=== PATIENT | female | born 1930 | race Caucasian/White ===

== ENCOUNTER 2019-03-18 20:45 | Observation (INO) | payer MEDICARE, OTHER ==
--- NOTE | 2019-03-18 20:56 | EDM.PDOC ---
ED HPI GENERAL MEDICAL PROBLEM - General Chief Complaint: Respiratory Problem Stated Complaint: COUGH Time Seen by Provider: 03/18/19 20:55 Source of Information: Reports: Patient, Family (Daughter) - History of Present Illness INITIAL COMMENTS - FREE TEXT/NARRATIVE: Patient does have a baseline of dementia. She also has been coughing. We did give her a DuoNeb when she came by EMS and that did greatly improve her. Chest x -ray was negative. I did show the family the x-ray and the radiologist agreed that the x-ray was negative. Lactic acid however was elevated at 2.2 therefore I did keep her overnight for observation. I will be trending her lactic acid and do another one in 4 hours. I will also initiate antibiotic therapy. Blood cultures have been done. The patient is afebrile. ProBNP was negative. She was talking and reaching her baseline by the time that we took her upstairs for observation. I will continue trending the troponins. Most likely the patient will be going home tomorrow. Please use this dictation as my admitting note for observation. I will be reassessing the patient in the morning. Onset: Gradual Duration: Getting Worse Location: Reports: Generalized Improves with: Reports: Medication Context: Denies: Sick Contact - Related Data Allergies Allergy/AdvReac Type Severity Reaction Status Date / Time No Known Drug Allergies Allergy Other Verified 03/18/19 21:44 Home Meds: Home Meds Donepezil [Aricept] 10 mg PO DAILY 05/05/16 [History] Flaxseed Oil [Flax Oil] 1,000 mg PO DAILY 05/05/16 [History] Levothyroxine 75 mcg PO DAILY 05/05/16 [History] Loratadine 10 mg PO DAILY 05/05/16 [History] Multivitamins [Tab-A-Hollis] 1 tab PO DAILY 05/05/16 [History] Naproxen Sodium [Aleve] 220 mg PO Q12HR PRN 05/05/16 [History] Cholecalciferol (Vitamin D3) [Vitamin D3] 2,000 units PO DAILY #0 05/10/16 [Rx] ALPRAZolam [Xanax] 0.125 mg PO TID 03/19/19 [History] Acetaminophen 1,000 mg PO DAILY 03/19/19 [History] Bisacodyl 10 mg RC ONCALL PRN 03/19/19 [History] Bisacodyl [Dulcolax] 5 mg PO ONCALL 03/19/19 [History] Clobetasol [Temovate 0.05% Oint] 1 applic TOP ONCALL PRN 03/19/19 [History] Estradiol [Estrace Vaginal] 1 applic VAG BID 03/19/19 [History] Lactulose 15 ml PO BID PRN 03/19/19 [History] Melatonin 3 mg PO BEDTIME 03/19/19 [History] Omeprazole Magnesium [Prilosec Otc] 20 mg PO ACBREAKFAST 03/19/19 [History] Ondansetron [Zofran] 1 tab PO Q8HR PRN 03/19/19 [History] Potassium Chloride [Klor-Con M20] 20 meq PO DAILY 03/19/19 [History] Sennosides 2 tab PO BID 03/19/19 [History] Triamcinolone Acetonide [Triamcinolone Acetonide 0.1% Crm] 1 applic TOP ONCALL PRN 03/19/19 [History] guaiFENesin [Aidee-Tussin] 10 ml PO Q4HR PRN 03/19/19 [History] traMADol HCl [Tramadol HCl] 25 mg PO DAILY 03/19/19 [History] traMADol [Ultram] 50 mg PO DAILY PRN 03/19/19 [History] Past Medical History - Past Health History Medical/Surgical History: Denies Medical/Surgical History Gastrointestinal History: Reports: Chronic Constipation Other GRADES 1 THRU 6 [employer] History: lichen sclerosus et atrophicus. vulvar lesion Musculoskeletal History: Reports: Osteoporosis Other Musculoskeletal History: restless leg syndrome. DJD Neurological History: Reports: Other (See Below) Other Neuro History: dementia Psychiatric History: Reports: Anxiety, Dementia Endocrine/Metabolic History: Reports: Hypothyroidism Hematologic History: Reports: None Immunologic History: Reports: None Oncologic (Cancer) History: Reports: Breast, Other (See Below) Other Dermatologic History: granuloma annulare - Infectious Disease History Infectious Disease History: Reports: None - Past Surgical History HEENT Surgical History: Reports: Other (See Below) Female Surgical History: Reports: Section, Hysterectomy ED ROS GENERAL - Review of Systems Review Of Systems: ROS reveals no pertinent complaints other than HPI. ED EXAM, GENERAL - Physical Exam Exam: See Below Exam Limited By: No Limitations General Appearance: Alert, Mild Distress, Moderate Distress Eye Exam: Bilateral Eye: EOMI, Normal Fundi, Normal Inspection Respiratory/Chest: Respiratory Distress, Crackles, Rhonchi, Retractions, Other ( Bilaterally into the bases.). No: No Respiratory Distress, Lungs Clear, Normal Breath Sounds, No Accessory Muscle Use, Chest Non-Tender Cardiovascular: Normal Peripheral Pulses, Regular Rate, Rhythm GI/Abdominal: Normal Bowel Sounds, Soft, Non-Tender Back Exam: Normal Inspection Extremities: Normal Inspection Neurological: Alert, Other (Dementia is her baseline.) Psychiatric: Anxious Skin Exam: Warm, Dry Lymphatic: No Adenopathy Course - Vital Signs Last Recorded V/S: Last Vital Signs Temp 37.1 C 03/19/19 05:18 Pulse 81 03/19/19 05:18 Resp 20 03/19/19 05:18 BP 117/69 03/19/19 05:18 Pulse Ox 95 03/19/19 05:18 - Orders/Labs/Meds Orders: Active Orders 24 hr Category Date Time Status Patient Status [ADT] Routine ADT 03/18/19 22:55 Active Antiembolic Devices [RC] 08,20 Care 03/18/19 23:07 Active Oxygen Therapy [RC] .PRN Care 03/18/19 22:59 Active RT Aerosol Therapy [RC] .PRN Care 03/18/19 23:07 Active RT Aerosol Therapy [RC] ASDIRECTED Care 03/18/19 20:59 Active Up With Assistance [RC] 08,20 Care 03/18/19 22:58 Active VTE/DVT Education [RC] .PRN Care 03/18/19 22:59 Active Vital Signs [RC] 06,10,14,18,22,02 Care 03/18/19 22:59 Active Respiratory Care Assess and Treatment [CONS] Routine Cons 03/18/19 22:58 Active Regular Diet [DIET] Diet 03/19/19 Breakfast Active CXR [Chest 1V Frontal] [CR] Stat Exams 03/18/19 20:51 Taken CORTISOL [REF] Stat Lab 03/18/19 21:49 Received CULTURE BLOOD [BC] Stat Lab 03/18/19 21:49 Received CULTURE BLOOD [BC] Stat Lab 03/18/19 21:56 Results CULTURE URINE [RM] Stat Lab 03/18/19 20:52 Ordered Acetaminophen [Tylenol] Med 03/18/19 22:58 Active 650 mg PO Q4H PRN Albuterol/Ipratropium [DuoNeb 3.0-0.5 MG/3 ML] Med 03/18/19 22:58 Active 3 ml NEB Q4H PRN Ondansetron [Zofran] Med 03/18/19 22:58 Active 4 mg IV Q4H PRN Blood Culture x2 Reflex Set [OM.PC] Stat Oth 03/18/19 20:52 Ordered Sequential Compression Device [OM.PC] Per Unit Routine Oth 03/18/19 23:06 Ordered Resuscitation Status Routine Resus Stat 03/18/19 22:58 Ordered Medication Orders Acetaminophen (Tylenol) 650 mg PO Q4H PRN PRN Reason: Pain (Mild 1-3)/fever Albuterol/Ipratropium (Duoneb 3.0-0.5 Mg/3 Ml) 3 ml NEB Q4H PRN PRN Reason: dyspnea/wheezing Last Admin: 03/19/19 02:30 Dose: 3 ml Ceftriaxone Sodium (Rocephin) 1 gm IVPUSH DAILY [facility] Azithromycin 500 mg/ Sodium (Chloride) 250 mls @ 250 mls/hr IV DAILY [facility] Ondansetron HCl (Zofran) 4 mg IV Q4H PRN PRN Reason: Nausea/Vomiting Labs: Laboratory Tests 03/18/19 03/18/19 03/18/19 Range/Units 21:56 21:56 21:56 WBC 10.3 H (4.0-10.0) x10^3/uL RBC 4.63 (4.00-5.50) x10^6/uL Hgb 14.9 D (12.0-16.0) g/dL Hct 44.1 (33.0-47.0) % MCV 95.2 H D (78.0-93.0) fL MCH 32.2 H (26.0-32.0) pg MCHC 33.8 (32.0-36.0) g/dL RDW Coeff of Christopher 13.3 (10.0-15.0) % Plt Count 186 (130-400) x10^3/uL Neut % (Auto) 71.2 (50.0-80.0) % Lymph % (Auto) 19.7 L (25.0-50.0) % [place] % (Auto) 7.4 (2.0-11.0) % Eos % (Auto) 1.5 (0.0-4.0) % Baso % (Auto) 0.2 (0.2-1.2) % Sodium 143 D (136-145) mmol/L Potassium 4.3 (3.5-5.1) mmol/L Chloride 108 H D (98-107) mmol/L Carbon Dioxide 23 (21-32) mmol/L Anion Gap 16.3 (10-20) mmol/L BUN 26 H (7-18) mg/dL Creatinine 0.7 (0.55-1.02) mg/dL Est Cr Clr Drug Dosing 47.97 mL/min Estimated GFR (MDRD) > 60 Glucose 111 H (74-106) mg/dL Lactic Acid 2.2 H* (0.4-2.0) mmol/L Calcium 9.1 (8.5-10.1) mg/dL Corrected Calcium 10.06 (8.5-10.1) mg/dL Magnesium 1.8 (1.8-2.4) mg/dL Total Bilirubin 0.2 (0.2-1.0) mg/dL AST 19 (15-37) U/L ALT 18 (14-59) U/L Alkaline Phosphatase 74 (46-116) U/L C-Reactive Protein 2.3 H (<=0.9) mg/dL NT-Pro-B Natriuret Pep 347 (<=450) pg/mL Total Protein 7.7 (6.4-8.2) g/dL Albumin 2.8 L (3.4-5.0) g/dL Globulin 4.9 Albumin/Globulin Ratio 0.57 Meds: Medications Generic Name Dose Route Start Last Admin Trade Name Freq PRN Reason Stop Dose Admin Acetaminophen 650 mg 03/18/19 22:58 Tylenol PO Q4H PRN Pain (Mild 1-3)/fever Albuterol/Ipratropium 3 ml 03/18/19 22:58 03/19/19 02:30 Duoneb 3.0-0.5 Mg/3 Ml NEB 3 ml Q4H PRN Administration dyspnea/wheezing Ceftriaxone Sodium 1 gm 03/19/19 08:00 Rocephin IVPUSH DAILY [facility] Azithromycin 500 mg/ Sodium 250 mls @ 250 mls/hr 03/19/19 08:00 Chloride IV DAILY [facility] Ondansetron HCl 4 mg 03/18/19 22:58 Zofran IV Q4H PRN Nausea/Vomiting Discontinued Medications Generic Name Dose Route Start Last Admin Trade Name Freq PRN Reason Stop Dose Admin Albuterol/Ipratropium 3 ml 03/18/19 20:58 03/18/19 21:10 Duoneb 3.0-0.5 Mg/3 Ml NEB 03/18/19 20:59 3 ml ONETIME ONE Administration Departure - Departure Time of Disposition: 22:55 Disposition: Refer to Observation Condition: Fair Clinical Impression: Elevated lactic acid level Acute bronchiolitis Qualifiers: Bronchiolitis organism: unspecified organism Qualified Code(s): J21.9 - Acute bronchiolitis, unspecified - Discharge Information *PRESCRIPTION DRUG MONITORING PROGRAM REVIEWED*: No *COPY OF PRESCRIPTION DRUG MONITORING REPORT IN PATIENT KENISHA: No - My Orders Last 24 Hours: My Active Orders 03/18/19 20:51 CXR [Chest 1V Frontal] [CR] Stat 03/18/19 20:52 CULTURE URINE [RM] Stat Blood Culture x2 Reflex Set [OM.PC] Stat 03/18/19 20:59 RT Aerosol Therapy [RC] ASDIRECTED 03/18/19 21:49 CORTISOL [REF] Stat CULTURE BLOOD [BC] Stat 03/18/19 21:56 CULTURE BLOOD [BC] Stat 03/18/19 22:55 Patient Status [ADT] Routine 03/18/19 22:58 Up With Assistance [RC] 08,20 Respiratory Care Assess and Treatment [CONS] Routine Acetaminophen [Tylenol] 650 mg PO Q4H PRN Albuterol/Ipratropium [DuoNeb 3.0-0.5 MG/3 ML] 3 ml NEB Q4H PRN Ondansetron [Zofran] 4 mg IV Q4H PRN Resuscitation Status Routine 03/18/19 22:59 Oxygen Therapy [RC] .PRN VTE/DVT Education [RC] .PRN Vital Signs [RC] 06,10,14,18,22,02 03/18/19 23:06 Sequential Compression Device [OM.PC] Per Unit Routine 03/18/19 23:07 Antiembolic Devices [RC] 08,20 RT Aerosol Therapy [RC] .PRN 03/19/19 Breakfast Regular Diet [DIET] - Assessment/Plan Last 24 Hours: My Active Orders 03/18/19 20:51 CXR [Chest 1V Frontal] [CR] Stat 03/18/19 20:52 CULTURE URINE [RM] Stat Blood Culture x2 Reflex Set [OM.PC] Stat 03/18/19 20:59 RT Aerosol Therapy [RC] ASDIRECTED 03/18/19 21:49 CORTISOL [REF] Stat CULTURE BLOOD [BC] Stat 03/18/19 21:56 CULTURE BLOOD [BC] Stat 03/18/19 22:55 Patient Status [ADT] Routine 03/18/19 22:58 Up With Assistance [RC] 08,20 Respiratory Care Assess and Treatment [CONS] Routine Acetaminophen [Tylenol] 650 mg PO Q4H PRN Albuterol/Ipratropium [DuoNeb 3.0-0.5 MG/3 ML] 3 ml NEB Q4H PRN Ondansetron [Zofran] 4 mg IV Q4H PRN Resuscitation Status Routine 03/18/19 22:59 Oxygen Therapy [RC] .PRN VTE/DVT Education [RC] .PRN Vital Signs [RC] 06,10,14,18,22,02 03/18/19 23:06 Sequential Compression Device [OM.PC] Per Unit Routine 03/18/19 23:07 Antiembolic Devices [RC] 08,20 RT Aerosol Therapy [RC] .PRN 03/19/19 Breakfast Regular Diet [DIET]
[2019-03-18] MEDS ORDERED: Albuterol/Ipratropium 3.0-0.5 MG/3 ML Neb Soln NEB ONE (20:58)
[2019-03-18 22:43] LABS: CHLORIDE,CL 108 mmol/L (98-107); SODIUM,NA 143 mmol/L (136-145)
[2019-03-18 22:47] LABS: ANION GAP 16.3 mmol/L (10-20)
[2019-03-18] MEDS ORDERED: Albuterol/Ipratropium 3.0-0.5 MG/3 ML Neb Soln NEB PRN (22:58)
[2019-03-18] MEDS ORDERED: Ondansetron 4 MG/2 ML SDV IV PRN (22:58)
[2019-03-18] MEDS ORDERED: Acetaminophen 325 MG Tab PO PRN (22:58)
[2019-03-19] MEDS ORDERED: Azithromycin 500 MG in Sodium Chloride 0.9% 250 ML IV SCH (08:00)
[2019-03-19] MEDS ORDERED: cefTRIAXone 1 GM Vial IVPUSH SCH (08:00)
--- NOTE | 2019-03-19 09:19 | CR ---
[id number] RAD/RAD Chest PA or AP 1V EXAM: FRONTAL CHEST INDICATION: Shortness of breath. COMPARISON: October 02, 2012. DISCUSSION: Mild hyperinflation suggests possible underlying chronic obstructive pulmonary disease. No acute infiltrates are identified. Normal heart size. Moderate to large hiatus hernia. Left axillary clips. Chronic bilateral humerus fractures. IMPRESSION: 1. Underlying chronic obstructive pulmonary disease is suggested. No acute findings. Kei Rai MD 03/19/19 0917 Thank you for allowing us to participate in the care of your patient.
[2019-03-19] MEDS ORDERED: Albuterol/Ipratropium 3.0-0.5 MG/3 ML Neb Soln NEB ONE (09:34)
[2019-03-19 09:35] LABS: ANION GAP 12.3 mmol/L (10-20); CHLORIDE,CL 109 mmol/L (98-107); SODIUM,NA 143 mmol/L (136-145)
--- NOTE | 2019-03-19 09:40 | PCM.DCSUM1 ---
Discharge Summary - Hospital Course Free Text/Narrative:: X-ray is negative. She improved after a breathing treatment. No WBC. Trending LA. Will send her home with prednisone and doxycycline. Brief History: Patient was having difficulty with catching her breath. Lactic acid was elevated. I did keep her in for observation for trending Lactic acids and duonebs. Discussed case with primary. Diagnosis: Stroke: No - Discharge Data Discharge Date: 03/19/19 Discharge Disposition: DC/Tfer to [facility] Condition: Fair - Patient Summary/Data Consults: Consultations 03/18/19 22:58 Respiratory Care Assess and Treatment [CONS] Routine - Patient Instructions Diet: Regular Diet as Tolerated Activity: As Tolerated - Discharge Plan *PRESCRIPTION DRUG MONITORING PROGRAM REVIEWED*: No *COPY OF PRESCRIPTION DRUG MONITORING REPORT IN PATIENT KENISHA: No Prescriptions/Med Rec: Albuterol/Ipratropium [DuoNeb 3.0-0.5 MG/3 ML] 3 ml NEB BID #10 neb Doxycycline [Vibramycin] 100 mg PO BID #10 cap predniSONE [Prednisone] 20 mg PO DAILY #5 tablet Home Medications: Home Meds Donepezil [Aricept] 10 mg PO DAILY 05/05/16 [History] Flaxseed Oil [Flax Oil] 1,000 mg PO DAILY 05/05/16 [History] Levothyroxine 75 mcg PO DAILY 05/05/16 [History] Loratadine 10 mg PO DAILY 05/05/16 [History] Multivitamins [Tab-A-Hollis] 1 tab PO DAILY 05/05/16 [History] Naproxen Sodium [Aleve] 220 mg PO Q12HR PRN 05/05/16 [History] Cholecalciferol (Vitamin D3) [Vitamin D3] 2,000 units PO DAILY #0 05/10/16 [Rx] ALPRAZolam [Xanax] 0.125 mg PO TID 03/19/19 [History] Acetaminophen 1,000 mg PO DAILY 03/19/19 [History] Albuterol/Ipratropium [DuoNeb 3.0-0.5 MG/3 ML] 3 ml NEB BID #10 neb 03/19/19 [Rx ] Bisacodyl 10 mg RC ONCALL PRN 03/19/19 [History] Bisacodyl [Dulcolax] 5 mg PO ONCALL 03/19/19 [History] Clobetasol [Temovate 0.05% Oint] 1 applic TOP ONCALL PRN 03/19/19 [History] Doxycycline [Vibramycin] 100 mg PO BID #10 cap 03/19/19 [Rx] Estradiol [Estrace Vaginal] 1 applic VAG BID 03/19/19 [History] Lactulose 15 ml PO BID PRN 03/19/19 [History] Melatonin 3 mg PO BEDTIME 03/19/19 [History] Omeprazole Magnesium [Prilosec Otc] 20 mg PO ACBREAKFAST 03/19/19 [History] Ondansetron [Zofran] 1 tab PO Q8HR PRN 03/19/19 [History] Potassium Chloride [Klor-Con M20] 20 meq PO DAILY 03/19/19 [History] Sennosides 2 tab PO BID 03/19/19 [History] Triamcinolone Acetonide [Triamcinolone Acetonide 0.1% Crm] 1 applic TOP ONCALL PRN 03/19/19 [History] guaiFENesin [Aidee-Tussin] 10 ml PO Q4HR PRN 03/19/19 [History] predniSONE [Prednisone] 20 mg PO DAILY #5 tablet 03/19/19 [Rx] traMADol HCl [Tramadol HCl] 25 mg PO DAILY 03/19/19 [History] traMADol [Ultram] 50 mg PO DAILY PRN 03/19/19 [History] Forms: ED Department Discharge, ED Summary Discharge Referrals: Lynne Bergman DO [Primary Care Provider] - - Discharge Summary/Plan Comment DC Time >30 min.: No Discharge Summary/Plan Comment: The patient will be reassessed on Tuesday by her primary. - General Info Date of Service: 03/19/19 Functional Status: Reports: Pain Controlled - Review of Systems General: Reports: No Symptoms Pulmonary: Reports: Shortness of Breath (Slight) Cardiovascular: Reports: No Symptoms Gastrointestinal: Reports: No Symptoms Genitourinary: Reports: No Symptoms Musculoskeletal: Reports: No Symptoms - Patient Data Vitals - Most Recent: Last Vital Signs Temp 37.1 C 03/19/19 05:18 Pulse 81 03/19/19 05:18 Resp 20 03/19/19 05:18 BP 117/69 03/19/19 05:18 Pulse Ox 95 03/19/19 05:18 Weight - Most Recent: 56.699 kg I&O - Last 24 hours: Intake & Output 03/18/19 03/19/19 03/19/19 22:59 06:59 14:59 Intake Total 0 Balance 0 Lab Results - Last 24 hrs: Laboratory Results - last 24 hr 03/18/19 03/18/19 03/18/19 Range/Units 21:56 21:56 21:56 WBC 10.3 H (4.0-10.0) x10^3/uL RBC 4.63 (4.00-5.50) x10^6/uL Hgb 14.9 D (12.0-16.0) g/dL Hct 44.1 (33.0-47.0) % MCV 95.2 H D (78.0-93.0) fL MCH 32.2 H (26.0-32.0) pg MCHC 33.8 (32.0-36.0) g/dL RDW Coeff of Christopher 13.3 (10.0-15.0) % Plt Count 186 (130-400) x10^3/uL Neut % (Auto) 71.2 (50.0-80.0) % Lymph % (Auto) 19.7 L (25.0-50.0) % [place] % (Auto) 7.4 (2.0-11.0) % Eos % (Auto) 1.5 (0.0-4.0) % Baso % (Auto) 0.2 (0.2-1.2) % Sodium 143 D (136-145) mmol/L Potassium 4.3 (3.5-5.1) mmol/L Chloride 108 H D (98-107) mmol/L Carbon Dioxide 23 (21-32) mmol/L Anion Gap 16.3 (10-20) mmol/L BUN 26 H (7-18) mg/dL Creatinine 0.7 (0.55-1.02) mg/dL Est Cr Clr Drug Dosing 47.97 mL/min Estimated GFR (MDRD) > 60 Glucose 111 H (74-106) mg/dL Lactic Acid 2.2 H* (0.4-2.0) mmol/L Calcium 9.1 (8.5-10.1) mg/dL Corrected Calcium 10.06 (8.5-10.1) mg/dL Magnesium 1.8 (1.8-2.4) mg/dL Total Bilirubin 0.2 (0.2-1.0) mg/dL AST 19 (15-37) U/L ALT 18 (14-59) U/L Alkaline Phosphatase 74 (46-116) U/L C-Reactive Protein 2.3 H (<=0.9) mg/dL NT-Pro-B Natriuret Pep 347 (<=450) pg/mL Total Protein 7.7 (6.4-8.2) g/dL Albumin 2.8 L (3.4-5.0) g/dL Globulin 4.9 Albumin/Globulin Ratio 0.57 03/19/19 03/19/19 Range/Units 02:12 09:10 WBC 7.9 (4.0-10.0) x10^3/uL RBC 4.19 (4.00-5.50) x10^6/uL Hgb 13.6 (12.0-16.0) g/dL Hct 40.2 (33.0-47.0) % MCV 95.9 H (78.0-93.0) fL MCH 32.5 H (26.0-32.0) pg MCHC 33.8 (32.0-36.0) g/dL RDW Coeff of Christopher 13.4 (10.0-15.0) % Plt Count 168 (130-400) x10^3/uL Neut % (Auto) 69.9 (50.0-80.0) % Lymph % (Auto) 20.4 L (25.0-50.0) % [place] % (Auto) 7.7 (2.0-11.0) % Eos % (Auto) 1.6 (0.0-4.0) % Baso % (Auto) 0.4 (0.2-1.2) % Sodium (136-145) mmol/L Potassium (3.5-5.1) mmol/L Chloride (98-107) mmol/L Carbon Dioxide (21-32) mmol/L Anion Gap (10-20) mmol/L BUN (7-18) mg/dL Creatinine (0.55-1.02) mg/dL Est Cr Clr Drug Dosing mL/min Estimated GFR (MDRD) Glucose (74-106) mg/dL Lactic Acid 2.1 H* (0.4-2.0) mmol/L Calcium (8.5-10.1) mg/dL Corrected Calcium (8.5-10.1) mg/dL Magnesium (1.8-2.4) mg/dL Total Bilirubin (0.2-1.0) mg/dL AST (15-37) U/L ALT (14-59) U/L Alkaline Phosphatase (46-116) U/L C-Reactive Protein (<=0.9) mg/dL NT-Pro-B Natriuret Pep (<=450) pg/mL Total Protein (6.4-8.2) g/dL Albumin (3.4-5.0) g/dL Globulin Albumin/Globulin Ratio MATEO Results - Last 24 hrs: Microbiology 03/18/19 21:56 Anaerobic Blood Culture - Final Blood - Venous - Lab Draw Med Orders - Current: Current Medications Acetaminophen (Tylenol) 650 mg PO Q4H PRN PRN Reason: Pain (Mild 1-3)/fever Albuterol/Ipratropium (Duoneb 3.0-0.5 Mg/3 Ml) 3 ml NEB Q4H PRN PRN Reason: dyspnea/wheezing Last Admin: 03/19/19 02:30 Dose: 3 ml Ceftriaxone Sodium (Rocephin) 1 gm IVPUSH DAILY [facility] Last Admin: 03/19/19 08:27 Dose: 1 gm Azithromycin 500 mg/ Sodium (Chloride) 250 mls @ 250 mls/hr IV DAILY [facility] Last Admin: 03/19/19 08:26 Dose: 250 mls/hr Ondansetron HCl (Zofran) 4 mg IV Q4H PRN PRN Reason: Nausea/Vomiting Discontinued Medications Albuterol/Ipratropium (Duoneb 3.0-0.5 Mg/3 Ml) 3 ml NEB ONETIME ONE Stop: 03/18/19 20:59 Last Admin: 03/18/19 21:10 Dose: 3 ml Albuterol/Ipratropium (Duoneb 3.0-0.5 Mg/3 Ml) 3 ml NEB ONETIME ONE Stop: 03/19/19 09:35 - Exam Quality Assessment: Denies: Supplemental Oxygen General: Reports: Alert, Other (Baseline dementia established. ) HEENT: Reports: Pupils Equal, Pupils Reactive Neck: Reports: Supple, Trachea Midline Lungs: Reports: Rales (slight) Cardiovascular: Reports: Regular Rate, Regular Rhythm GI/Abdominal Exam: Normal Bowel Sounds, Soft Neurological: Reports: No New Focal Deficit Psy/Mental Status: Reports: Alert
[2019-03-19 11:21] VITALS: BP 124/86
== END 2019-03-19 11:15 ==
LOC: VM.ED 20:45 → VM.MS 23:03
PROVIDERS: ADMIT Physician Assistant; ATTEND Physician Assistant
DX: J21.9 Acute bronchiolitis, unspecified (principal); R74.0 Nonspecific elevation of levels of transaminase and lactic acid dehydrogenase [LDH]; E03.9 Hypothyroidism, unspecified; F03.90 Unspecified dementia, unspecified severity, without behavioral disturbance, psychotic disturbance, mood disturbance, and anxiety; M19.90 Unspecified osteoarthritis, unspecified site; K59.09 Other constipation; R45.1 Restlessness and agitation; Z79.899 Other long term (current) drug therapy
CPT/HCPCS: 36415; 71045; 80048; 80053; 82533; 83605; 83735; 83880; 85025; 86140; 87040; 93005; 94640; 96365; 96375; 99217; 99219; 99285-25; G0378; J0456; J0696; J7050; J7620-GY

== ENCOUNTER 2019-11-17 09:25 | Inpatient (IN) | payer MEDICARE, OTHER ==
[2019-11-17] MEDS ORDERED: Sodium Chloride 0.9% 1,000 ML IV ONE (09:36)
[2019-11-17] MEDS ORDERED: Sodium Chloride 0.9% 10 ML Syringe FLUSH PRN (09:36)
[2019-11-17] MEDS ORDERED: Clindamycin Phosphate in D5W 600 MG in Premix Bag 1 BAG IV SCH ×2 (09:45)
--- NOTE | 2019-11-17 10:05 | EDM.PDOC ---
ED HPI GENERAL MEDICAL PROBLEM - General Chief Complaint: Possible Sepsis Stated Complaint: shortness of breath Time Seen by Provider: 11/17/19 09:35 Source of Information: Reports: EMS, Care Home Records History Limitations: Reports: No Limitations - History of Present Illness INITIAL COMMENTS - FREE TEXT/NARRATIVE: Patient presents to the ER with complaints of diaphoresis, increased confusion from the halfway. Does have history of dementia. Had vomited last night, diarrhea stool this am. EMS reports wet lung moore. Oxygen sat was 90% on room air. Tachypneic. Afebrile. Patient denies pain except stating short of breath and bottom sore. No chest pain. No abdominal pain. Onset: Gradual Duration: Hour(s):, Getting Worse Location: Reports: Chest Severity: Moderate Associated Symptoms: Reports: Confusion, Diaphoresis, Nausea/Vomiting, Shortness of Breath, Weakness. Denies: Chest Pain, Cough, Fever/Chills Treatments PAID SEARCH SPECIALIST: Reports: See EMS Report - Related Data Allergies Allergy/AdvReac Type Severity Reaction Status Date / Time adhesive tape Allergy Rash Verified 11/17/19 10:46 Sulfa (Sulfonamide Allergy Cannot Verified 11/17/19 10:46 Antibiotics) Remember Home Meds: Home Meds Donepezil [Aricept] 10 mg PO DAILY 05/05/16 [History] Flaxseed Oil [Flax Oil] 1,000 mg PO DAILY 05/05/16 [History] Levothyroxine 75 mcg PO DAILY 05/05/16 [History] Loratadine 10 mg PO DAILY 05/05/16 [History] Multivitamins [Tab-A-Hollis] 1 tab PO DAILY 05/05/16 [History] Naproxen Sodium [Aleve] 220 mg PO Q12HR PRN 05/05/16 [History] Acetaminophen 1,000 mg PO DAILY 03/19/19 [History] Bisacodyl 10 mg RC Q96H PRN 03/19/19 [History] Bisacodyl [Dulcolax] 5 mg PO Q72H 03/19/19 [History] Clobetasol [Temovate 0.05% Oint] 1 applic TOP ONCALL PRN 03/19/19 [History] Lactulose 15 ml PO DAILY 03/19/19 [History] Melatonin 3 mg PO BEDTIME 03/19/19 [History] Omeprazole Magnesium [Prilosec Otc] 20 mg PO ACBREAKFAST 03/19/19 [History] Ondansetron [Zofran] 1 tab PO Q8HR PRN 03/19/19 [History] Sennosides 2 tab PO DAILY 03/19/19 [History] Triamcinolone Acetonide [Triamcinolone Acetonide 0.1% Crm] 1 applic TOP ONCALL PRN 03/19/19 [History] estradioL [Estrace Vaginal] 1 applic VAG ASDIRECTED 03/19/19 [History] traMADol HCl [Tramadol HCl] 25 mg PO DAILY 03/19/19 [History] ALPRAZolam [Xanax] 0.25 mg PO TID 11/17/19 [History] Albuterol/Ipratropium [DuoNeb 3.0-0.5 MG/3 ML] 3 ml NEB Q4H PRN 11/17/19 [ History] Cholecalciferol (Vitamin D3) [D3 Dots] 2,000 unit PO DAILY 11/17/19 [History] Hydrocortisone [Hydrocortisone 1% Crm] 1 dose TOP ASDIRECTED PRN 11/17/19 [ History] Hydrocortisone [Hydrocortisone 1% Crm] 1 dose TOP BID 11/17/19 [History] lamoTRIgine [Lamictal] 50 mg PO DAILY 11/17/19 [History] Past Medical History Cardiovascular History: Reports: High Cholesterol Gastrointestinal History: Reports: Chronic Constipation, GERD Other SEWER INSPECTOR History: lichen sclerosus et atrophicus. vulvar lesion Musculoskeletal History: Reports: Osteoarthritis, Osteoporosis Other Musculoskeletal History: restless leg syndrome. DJD Neurological History: Reports: Other (See Below) Other Neuro History: dementia Psychiatric History: Reports: Anxiety, Dementia, Depression Endocrine/Metabolic History: Reports: Hypothyroidism Hematologic History: Reports: Anemia Immunologic History: Reports: None Oncologic (Cancer) History: Reports: Breast, Other (See Below) Other Dermatologic History: granuloma annulare - Infectious Disease History Infectious Disease History: Reports: None - Past Surgical History HEENT Surgical History: Reports: Other (See Below) Female Surgical History: Reports: Section, Hysterectomy Social & Family History - Family History Family Medical History: Noncontributory - Tobacco Use Smoking Status *Q: Unknown Ever Smoked - Caffeine Use Caffeine Use: Reports: Coffee ED ROS GENERAL - Review of Systems Review Of Systems: See Below Constitutional: Reports: Malaise, Diaphoresis. Denies: Fever, Chills HEENT: Reports: No Symptoms Respiratory: Reports: Shortness of Breath Cardiovascular: Denies: Chest Pain Endocrine: Reports: Fatigue GI/Abdominal: Reports: Diarrhea, Nausea, Vomiting. Denies: Abdominal Pain : Reports: Other ("bottom sore") Musculoskeletal: Reports: No Symptoms Skin: Reports: Other (skin clammy on arrival) Neurological: Reports: Confusion, Weakness ED EXAM, SEPSIS - Physical Exam Exam: See Below Exam Limited By: No Limitations General Appearance: Alert, Moderate Distress Ears: Normal External Exam, Normal TMs Nose: Normal Inspection, Normal Mucosa, No Blood Throat/Mouth: Other (mucous membranes dry; posterior pharynx noted to have thick mucopurulent rhinorrhea) Head: Normocephalic Neck: Normal Inspection, Supple, Non-Tender Respiratory/Chest: Respiratory Distress, Rhonchi Cardiovascular: No Edema, Tachycardia GI/Abdominal Exam: Normal Bowel Sounds, Soft, Non-Tender Extremities: Normal Inspection, No Pedal Edema Neurological: Alert, Oriented (oriented to person) Skin: Other (clammy) Course - Orders/Labs/Meds Orders: Active Orders 24 hr Category Date Time Status EKG Documentation Completion [RC] STAT Care 11/17/19 09:36 Active CULTURE BLOOD [BC] Stat Lab 11/17/19 09:40 Received CULTURE BLOOD [BC] Stat Lab 11/17/19 09:49 Results Clindamycin Phosphate in D5W [Cleocin in D5W] 600 mg Med 11/17/19 09:45 Active Premix Bag 1 bag IV Q6H Ondansetron [Zofran] Med 11/17/19 10:16 Active 4 mg IVPUSH Q6H PRN Sodium Chloride 0.9% [Normal Saline] 1,000 ml Med 11/17/19 09:36 Active IV CONTINUOUS Sodium Chloride 0.9% [Saline Flush] Med 11/17/19 09:36 Active 10 ml FLUSH ASDIRECTED PRN Blood Culture x2 Reflex Set [OM.PC] Stat Oth 11/17/19 09:36 Ordered Saline Lock Insert [OM.PC] Stat Oth 11/17/19 09:36 Ordered Severe Sepsis Onset Time [OM.PC] Stat Oth 11/17/19 09:36 Ordered Medication Orders Clindamycin Phosphate 600 mg/ (Premix) 50 mls @ 150 mls/hr IV Q6H KAILASH Last Admin: 11/17/19 09:50 Dose: 150 mls/hr Sodium Chloride (Normal Saline) 1,000 mls @ 100 mls/hr IV CONTINUOUS ONE Stop: 11/17/19 19:35 Last Admin: 11/17/19 09:49 Dose: 100 mls/hr Ondansetron HCl (Zofran) 4 mg IVPUSH Q6H PRN PRN Reason: Nausea Last Admin: 11/17/19 10:31 Dose: 4 mg Sodium Chloride (Saline Flush) 10 ml FLUSH ASDIRECTED PRN PRN Reason: Keep Vein Open Labs: Laboratory Tests 11/17/19 11/17/19 11/17/19 Range/Units 09:40 09:40 09:40 WBC 6.1 (4.0-10.0) x10^3/uL RBC 5.63 H (4.00-5.50) x10^6/uL Hgb 17.3 H D (12.0-16.0) g/dL Hct 51.7 H (33.0-47.0) % MCV 91.8 D (78.0-93.0) fL MCH 30.7 (26.0-32.0) pg MCHC 33.5 (32.0-36.0) g/dL RDW Coeff of Christopher 14.1 (10.0-15.0) % Plt Count 214 (130-400) x10^3/uL Neut % (Auto) 90.3 H (50.0-80.0) % Lymph % (Auto) 2.3 L (25.0-50.0) % [place] % (Auto) 7.2 (2.0-11.0) % Eos % (Auto) 0.0 (0.0-4.0) % Baso % (Auto) 0.2 (0.2-1.2) % POC ABG pH (7.35-7.45) POC ABG pCO2 (35-45) mmHG POC ABG pO2 (80-105) mmHG POC ABG HCO3 (22-26) mmol/L POC ABG Total CO2 (23-27) mmol/L POC ABG O2 Sat (95-98) % POC ABG Base Excess (-2-3) mmol/L POC FiO2 Sodium 144 (136-145) mmol/L Potassium 3.9 (3.5-5.1) mmol/L Chloride 107 (98-107) mmol/L Carbon Dioxide 15 L D (21-32) mmol/L Anion Gap 25.9 H (10-20) mmol/L BUN 25 H (7-18) mg/dL Creatinine 1.3 H (0.55-1.02) mg/dL Est Cr Clr Drug Dosing TNP Estimated GFR (MDRD) 39 Glucose 199 H (74-106) mg/dL Lactic Acid 6.5 H* (0.4-2.0) mmol/L Calcium 9.0 (8.5-10.1) mg/dL Corrected Calcium 9.64 (8.5-10.1) mg/dL Total Bilirubin 0.5 (0.2-1.0) mg/dL AST 18 (15-37) U/L ALT 19 (14-59) U/L Alkaline Phosphatase 90 (46-116) U/L Troponin I < 0.017 (<=0.056) ng/mL C-Reactive Protein 13.6 H (<=0.9) mg/dL NT-Pro-B Natriuret Pep 2179 H (<=450) pg/mL Total Protein 8.3 H (6.4-8.2) g/dL Albumin 3.2 L (3.4-5.0) g/dL Globulin 5.1 Albumin/Globulin Ratio 0.63 POC Result Comm Urine Color (YELLOW) Urine Appearance (CLEAR) Urine pH (5.0-8.0) Ur Specific [place] Urine Protein (NEGATIVE) mg/dL Urine Glucose (UA) (NEGATIVE) mg/dL Urine Ketones (NEGATIVE) mg/dL Urine Occult Blood (NEGATIVE) Urine Nitrite (NEGATIVE) Urine Bilirubin (NEGATIVE) Urine Urobilinogen (0.2) EU/dL Ur Leukocyte Esterase (NEGATIVE) U Hyaline Cast (Auto) Urine RBC (NOT SEEN) /HPF Urine WBC (NOT SEEN) /HPF Ur Squamous Epith Cells (NEGATIVE) /HPF Amorphous Sediment Urine Bacteria (NEGATIVE) /HPF Urine Mucus (NEGATIVE) /LPF 11/17/19 11/17/19 Range/Units 10:05 10:20 WBC (4.0-10.0) x10^3/uL RBC (4.00-5.50) x10^6/uL Hgb (12.0-16.0) g/dL Hct (33.0-47.0) % MCV (78.0-93.0) fL MCH (26.0-32.0) pg MCHC (32.0-36.0) g/dL RDW Coeff of Christopher (10.0-15.0) % Plt Count (130-400) x10^3/uL Neut % (Auto) (50.0-80.0) % Lymph % (Auto) (25.0-50.0) % [place] % (Auto) (2.0-11.0) % Eos % (Auto) (0.0-4.0) % Baso % (Auto) (0.2-1.2) % POC ABG pH 7.255 L* (7.35-7.45) POC ABG pCO2 32 L (35-45) mmHG POC ABG pO2 92 (80-105) mmHG POC ABG HCO3 14 L (22-26) mmol/L POC ABG Total CO2 15 L (23-27) mmol/L POC ABG O2 Sat 96 (95-98) % POC ABG Base Excess -13 L (-2-3) mmol/L POC FiO2 0.28 Sodium (136-145) mmol/L Potassium (3.5-5.1) mmol/L Chloride (98-107) mmol/L Carbon Dioxide (21-32) mmol/L Anion Gap (10-20) mmol/L BUN (7-18) mg/dL Creatinine (0.55-1.02) mg/dL Est Cr Clr Drug Dosing Estimated GFR (MDRD) Glucose (74-106) mg/dL Lactic Acid (0.4-2.0) mmol/L Calcium (8.5-10.1) mg/dL Corrected Calcium (8.5-10.1) mg/dL Total Bilirubin (0.2-1.0) mg/dL AST (15-37) U/L ALT (14-59) U/L Alkaline Phosphatase (46-116) U/L Troponin I (<=0.056) ng/mL C-Reactive Protein (<=0.9) mg/dL NT-Pro-B Natriuret Pep (<=450) pg/mL Total Protein (6.4-8.2) g/dL Albumin (3.4-5.0) g/dL Globulin Albumin/Globulin Ratio POC Result Comm Called critical res Urine Color Dark yellow H (YELLOW) Urine Appearance Turbid H (CLEAR) Urine pH 5.0 (5.0-8.0) Ur Specific [place] >=1.030 Urine Protein Trace H (NEGATIVE) mg/dL Urine Glucose (UA) Negative (NEGATIVE) mg/dL Urine Ketones Negative (NEGATIVE) mg/dL Urine Occult Blood Moderate H (NEGATIVE) Urine Nitrite Negative (NEGATIVE) Urine Bilirubin Small H (NEGATIVE) Urine Urobilinogen 0.2 (0.2) EU/dL Ur Leukocyte Esterase Negative (NEGATIVE) U Hyaline Cast (Auto) Few Urine RBC 40-50 H (NOT SEEN) /HPF Urine WBC 0-5 (NOT SEEN) /HPF Ur Squamous Epith Cells Many H (NEGATIVE) /HPF Amorphous Sediment Many Urine Bacteria Few H (NEGATIVE) /HPF Urine Mucus Few H (NEGATIVE) /LPF Meds: Medications Generic Name Dose Route Start Last Admin Trade Name Freq PRN Reason Stop Dose Admin Clindamycin Phosphate 600 mg/ 50 mls @ 150 mls/hr 11/17/19 09:45 11/17/19 09: 50 Premix IV 150 mls/hr Q6H KAILASH Administration Sodium Chloride 1,000 mls @ 100 mls/hr 11/17/19 09:36 11/17/19 09:49 Normal Saline IV 11/17/19 19:35 100 mls/hr CONTINUOUS ONE Administration Ondansetron HCl 4 mg 11/17/19 10:16 11/17/19 10:31 Zofran IVPUSH 4 mg Q6H PRN Administration Nausea Sodium Chloride 10 ml 11/17/19 09:36 Saline Flush FLUSH ASDIRECTED PRN Keep Vein Open - Re-Assessments/Exams Free Text/Narrative Re-Assessment/Exam: 11/17/19 1050 Chest xray essentially clear at this time. Labs noted. WBC normal yet at 6. Lactic acid level 6.5. UA does show few bacteria, spec gravity over 1.030. ProBNP 2167. No history of CHF. Has had 2 loose stools thus far in the ER. Given IV Clindamycin 600 mg dose. STarted IV Normal saline. Discussed status with daughter 1110- Discussed status with [facility] family and consumer science professor. Accepted patient for admission. Departure - Departure Time of Disposition: 11:23 Disposition: Admitted As Inpatient 66 Condition: Fair Clinical Impression: Aspiration pneumonia due to gastric secretions, Elevated lactic acid level, Sepsis - Discharge Information *PRESCRIPTION DRUG MONITORING PROGRAM REVIEWED*: No *COPY OF PRESCRIPTION DRUG MONITORING REPORT IN PATIENT KENISHA: No Forms: ED Department Discharge Sepsis Event Note - Focused Exam Date Exam was Performed: 11/17/19 Time Exam was Performed: 11:18 - My Orders Last 24 Hours: My Active Orders 11/17/19 09:36 EKG Documentation Completion [RC] STAT Sodium Chloride 0.9% [Normal Saline] 1,000 ml IV CONTINUOUS Sodium Chloride 0.9% [Saline Flush] 10 ml FLUSH ASDIRECTED PRN Blood Culture x2 Reflex Set [OM.PC] Stat Saline Lock Insert [OM.PC] Stat Severe Sepsis Onset Time [OM.PC] Stat 11/17/19 09:40 CULTURE BLOOD [BC] Stat 11/17/19 09:45 Clindamycin Phosphate in D5W [Cleocin in D5W] 600 mg Premix Bag 1 bag IV Q6H 11/17/19 09:49 CULTURE BLOOD [BC] Stat 11/17/19 10:16 Ondansetron [Zofran] 4 mg IVPUSH Q6H PRN - Assessment/Plan Last 24 Hours: My Active Orders 11/17/19 09:36 EKG Documentation Completion [RC] STAT Sodium Chloride 0.9% [Normal Saline] 1,000 ml IV CONTINUOUS Sodium Chloride 0.9% [Saline Flush] 10 ml FLUSH ASDIRECTED PRN Blood Culture x2 Reflex Set [OM.PC] Stat Saline Lock Insert [OM.PC] Stat Severe Sepsis Onset Time [OM.PC] Stat 11/17/19 09:40 CULTURE BLOOD [BC] Stat 11/17/19 09:45 Clindamycin Phosphate in D5W [Cleocin in D5W] 600 mg Premix Bag 1 bag IV Q6H 11/17/19 09:49 CULTURE BLOOD [BC] Stat 11/17/19 10:16 Ondansetron [Zofran] 4 mg IVPUSH Q6H PRN
[2019-11-17] MEDS ORDERED: Ondansetron 4 MG/2 ML SDV IVPUSH PRN (10:16)
[2019-11-17 10:32] LABS: CHLORIDE,CL 107 mmol/L (98-107); SODIUM,NA 144 mmol/L (136-145)
[2019-11-17 10:33] LABS: ANION GAP 25.9 mmol/L (10-20)
--- NOTE | 2019-11-17 10:33 | CR ---
[id number] RAD/RAD Chest PA or AP 1V EXAM: FRONTAL CHEST INDICATION: SHORTNESS OF BREATH. COMPARISON: March 18, 2019. DISCUSSION: Moderate to large hiatus hernia. Left base atelectasis. No definite infiltrates. Borderline heart size without evidence of congestive heart failure. Chronic healed left proximal humerus fracture. Left axillary clips. IMPRESSION: 1. No acute findings. Kei Rai MD 11/17/19 1032 Thank you for allowing us to participate in the care of your patient.
[2019-11-17] MEDS ORDERED: Sodium Bicarbonate 8.4% 50 MEQ/50 ML Syringe IVPUSH ONE (12:14)
[2019-11-17] MEDS ORDERED: Bisacodyl 10 MG Supp RECTAL PRN (12:27)
[2019-11-17] MEDS ORDERED: Ondansetron 4 MG Tab.DIS PO PRN (12:27)
[2019-11-17] MEDS ORDERED: Clobetasol 0.05% Crm 30 GM Tube TOP PRN (12:27)
[2019-11-17] MEDS ORDERED: Triamcinolone Acetonide 0.1% Crm 15 GM Tube TOP PRN (12:27)
[2019-11-17] MEDS ORDERED: Hydrocortisone 1% Crm 30 GM Tube TOP PRN (12:27)
[2019-11-17] MEDS ORDERED: Piperacillin/Tazobactam 4.5 GM in Sodium Chloride 0.9% 100 ML IV ONE (13:30)
[2019-11-17] MEDS: Piperacillin/Tazobactam 4.5 GM in Sodium Chloride 0.9% 100 ML IV ONE ×3 (13:30→13:38)
[2019-11-17] MEDS: Sodium Chloride 0.9% 1,000 ML IV SCH (13:40)
[2019-11-17] MEDS: Albuterol/Ipratropium 3.0-0.5 MG/3 ML Neb Soln NEB PRN ×2 (13:42→20:14)
[2019-11-17] MEDS: Oseltamivir 75 MG Cap PO SCH ×2 (16:26→21:43)
[2019-11-17] MEDS: Bisacodyl 5 MG Tab PO SCH (16:26)
--- NOTE | 2019-11-17 17:27 | HP ---
CHIEF COMPLAINT: Shortness of breath. HISTORY OF PRESENT ILLNESS: The patient was brought to the emergency room at [facility] this morning for diaphoresis and increased confusion. It is thought that the patient may have aspirated last evening while at the [place] [facility]. The patient does have significant dementia. The patient also had vomiting last evening and diarrhea this morning. According to the EMS report, the patient had very wet lung moore. The patient's oxygen saturations were in the low 90s on room air. The patient had been very tachypneic. PAST MEDICAL HISTORY: 1. Malignant neoplasm of the left breast. 2. Hypercholesteremia. 3. Hyperthyroidism. 4. History of hyponatremia. 5. Generalized anxiety disorder. 6. Dementia with behavioral disturbance. 7. Impulse control. 8. Anemia. 9. Restless legs syndrome. PAST SURGICAL HISTORY: None. FAMILY HISTORY: Noncontributory. SOCIAL HISTORY: The patient does not smoke cigarettes. The patient is a current resident at the [facility] in [place], [place]. LABORATORY STUDIES: 1. CBC: White blood cell count 6.1, hemoglobin 17.3, hematocrit 51.7, platelet count 214,000. 2. BMP: Sodium 144, potassium 3.9, chloride 107, CO2 of 15, and anion gap is 25.9, BUN is 25, creatinine 1.3. Glucose is 99, calcium is 9.0, AST is 18, ALT is 19, alkaline phosphatase is 90, protein is 8.3. 3. Lactic acid 6.5. 4. CRP is 13.6. 5. BNP is 2179. 6. Troponin is less than 0.017. 7. UA, specific gravity greater than 1.030, urine pH is 5.0, negative glucose, negative ketones, negative leukocyte esterase, negative wbc's. MEDICATIONS: 1. Tramadol 25 mg 1 tablets p.o. daily as needed. 2. Lactulose 15 mL daily as needed. 3. Senna 8.6 mg tablet 2 tablets onetime a day. 4. Dulcolax 5 mg 1 tablet p.o. every 3 days as needed. 5. Dulcolax 10 mg suppository every fourth day. 6. Omeprazole 20 mg 1 tablet p.o. daily. 7. Melatonin 3 mg 1 tablet p.o. daily at bedtime. 8. DuoNebs via nebulizer twice daily. 9. Clobetasol daily as needed for itching. 10.Triamcinolone daily as needed for rash. 11.Alprazolam 0.5 mg 3 times a day. 12.Acetaminophen 500 mg 2 tablets daily onetime a day. 13.Cholecalciferol 2000 International Units 1 capsule daily. 14.Aricept 10 mg 1 tablet p.o. daily. 15.Estrace 1 g vaginally 2 times a week. 16.Depakote 500 mg 1 tablet p.o. daily at bedtime. 17.Zofran 4 mg 1 tablet every 8 hours as needed. 18.Levothyroxine 75 mcg 1 tablet p.o. daily. 19.Claritin 10 mg 1 tablet p.o. daily. 20.Multivitamin 1 tablet p.o. daily. 21.Calcium 600 mg 1 tablet p.o. daily. 22.Flaxseed oil 1000 mg 1 tablet daily. 23.Naproxen 1 tablet p.o. twice daily as needed. ALLERGIES: 1. Adhesive tape. 2. Sulfa. REVIEW OF SYSTEMS: Please note, patient is somewhat lethargic but able to answer questions. General: The patient offers no specific complaints. The patient currently denies any pain. Respiratory: The patient feels short of breath. She has a cough. Cardiovascular: Negative. Abdomen: Negative. Skin: Negative. Neurological: Negative. PHYSICAL EXAMINATION: General Presentation: The patient is somewhat lethargic but alert when stimulated. Patient does not appear to be in any acute distress. Patient is cooperative. Respiratory: The patient has significant wet rhonchi in bilateral upper lobes, right greater than left. The bases are clear. The patient is tachypneic. Cardiovascular: Regular rate and rhythm. No murmur. Abdomen. Soft. Nontender. Bowel sounds are hypoactive x4. Skin: The patient's buttock is red, but there are no open areas. Otherwise, skin is okay. Neurological: The patient is lethargic, but able to answer questions with one- word responses. ASSESSMENT: 1. Aspiration pneumonia. 2. Dehydration. 3. Influenza B. 4. Diarrhea. 5. Dementia with behavioral disturbance. 6. Impulse control disorder. 7. Hypothyroidism. 8. Pure hypercholesteremia. 9. Restless legs syndrome. PLAN: The patient will be admitted to the acute care floor at [facility]. The patient will be started on Zosyn per protocol for aspiration pneumonia. Patient will also be started on Tamiflu for her influenza given her comorbid conditions and advanced age. The patient will be hydrated with normal saline. We will continue the same diet from the [place] [facility]. Aspiration precautions. The patient is a code 2 per patient and family wishes. I anticipate admission for at least the next 3 to 4 days. TB: 11/17/2019 14:58:21 MODL: 11/17/2019 17:23:12 /[id number]
[2019-11-17] MEDS: Piperacillin/Tazobactam 3.375 GM in Sodium Chloride 0.9% 100 ML IV SCH (20:05)
[2019-11-17] MEDS: Melatonin 3 MG Tab PO SCH (20:13)
[2019-11-17] MEDS ORDERED: Oseltamivir 30 MG Cap PO ONE (21:00)
[2019-11-18] MEDS: Sodium Chloride 0.9% 1,000 ML IV SCH (03:00)
[2019-11-18] MEDS: Piperacillin/Tazobactam 3.375 GM in Sodium Chloride 0.9% 100 ML IV SCH ×3 (04:25→19:40)
[2019-11-18] MEDS: Omeprazole 20 MG Cap.CR PO SCH (06:14)
[2019-11-18] MEDS ORDERED: Lactulose Soln 10 GM/15 ML 15 ML UD Cup PO SCH (08:00)
[2019-11-18 08:19] LABS: ANION GAP 16.2 mmol/L (10-20)
[2019-11-18] MEDS ORDERED: Potassium Chloride Riders 20 MEQ in Premix Bag 1 BAG IV ONE (11:04)
[2019-11-18] MEDS: Acetaminophen 500 MG Tab PO SCH (11:10)
[2019-11-18] MEDS: Loratadine 10 MG Tab PO SCH (11:10)
[2019-11-18] MEDS: Oseltamivir 30 MG Cap PO SCH ×2 (11:10→19:44)
[2019-11-18] MEDS: Donepezil 10 MG Tab PO SCH (11:10)
[2019-11-18] MEDS: lamoTRIgine 100 MG Tab PO SCH (11:11)
[2019-11-18] MEDS: traMADol 50 MG Tab PO SCH (11:12)
[2019-11-18] MEDS: Levothyroxine 75 MCG Tab PO SCH (11:14)
[2019-11-18] MEDS: Sennosides 8.6 MG Tab PO SCH (11:14)
[2019-11-18] MEDS: Dextrose 5% in Water 1,000 ML IV SCH (11:15)
[2019-11-18] MEDS: Melatonin 3 MG Tab PO SCH (19:43)
[2019-11-19] MEDS: Piperacillin/Tazobactam 3.375 GM in Sodium Chloride 0.9% 100 ML IV SCH ×3 (04:23→19:48)
[2019-11-19] MEDS: Omeprazole 20 MG Cap.CR PO SCH (06:43)
[2019-11-19 07:49] LABS: ANION GAP 11.2 mmol/L (10-20); CHLORIDE,CL 112 mmol/L (98-107); SODIUM,NA 146 mmol/L (136-145)
--- NOTE | 2019-11-19 10:38 | PN ---
Progress Note for MADONNA SANCHEZ Date: 11/18/2019 Room #: VM.216 CHIEF COMPLAINT: Shortness of breath. SUBJECTIVE: The patient was admitted to the emergency room at [facility] yesterday for diaphoresis and increased confusion. It was thought that the patient may have aspirated last evening while at the half-way. The patient does have significant dementia. The patient also had vomiting last evening and diarrhea yesterday morning. The patient initially upon admission had a very wet and congested lung sounds, right greater than left. The patient's oxygen saturations were very low and the patient was very tachypneic. The patient offers no specific complaints today. She states she is not having any pain. She feels that her breathing is better. She does feel very fatigued. The patient states she has a cough that is congested. The patient denies any chest pain or palpitations. The patient denies any abdominal pain. She has not had any vomiting or diarrhea since admission. PHYSICAL EXAMINATION: General Presentation: The patient is alert. The patient is pleasantly confused. The patient does not appear to be in any acute distress. Respiratory: Lungs have greatly improved from yesterday. Lung sounds are much more clear without any rhonchi or wheezing. The patient is still slightly tachypneic at 22. Cardiovascular: Regular rate and rhythm, no murmur. Abdomen: Soft. Bowel sounds are hypoactive x4, abdomen is nontender. Skin: Buttock is slightly reddened, however, no open areas. Neurologic: The patient is confused secondary to dementia. The patient is alert. Patient is cooperative. LABORATORY STUDIES: 1. CBC, white blood cell count 8.1, hemoglobin 14.5, hematocrit 43.6, platelets are 170,000, neutrophils 47%, band neutrophils 45%. 2. BMP: Sodium is 148, potassium 3.2, chloride is 112, CO2 is 23, anion gap is 16.2, BUN is 29, creatinine 0.9, GFR is 59, glucose is 136, calcium is 8.3. ASSESSMENT: 1. Aspiration pneumonia. 2. Influenza B. 3. Dehydration. 4. Diarrhea. 5. Dementia with behavioral disturbances. 6. Impulse control disorder. 7. Hypothyroidism. 8. Pure hypercholesterolemia. 9. Restless legs syndrome. PLAN: This is hospital day #2 for an 89-year-old female from the local half-way, who is diagnosed with aspiration pneumonia, dehydration, and influenza B. The patient's lung sounds are greatly improved. We will continue the patient on the Zosyn. We will also continue on p.r.n. nebulizers. We will switch the patient over to D5 given her increase in sodium level. I will give the patient 20 mEq of IV potassium today. We will check laboratory work in the morning. The patient is a code 2. We will continue the same diet from the half-way. Continue with acute cares for now. I do anticipate admission for another 1 to 2 days. TB: 11/18/2019 11:16:38 MODL: 11/18/2019 15:07:58 /[id number]
[2019-11-19] MEDS: traMADol 50 MG Tab PO SCH (10:41)
[2019-11-19] MEDS: Acetaminophen 500 MG Tab PO SCH (10:43)
[2019-11-19] MEDS: Donepezil 10 MG Tab PO SCH (10:43)
[2019-11-19] MEDS: Levothyroxine 75 MCG Tab PO SCH (10:44)
[2019-11-19] MEDS: lamoTRIgine 100 MG Tab PO SCH (10:44)
[2019-11-19] MEDS: Loratadine 10 MG Tab PO SCH (10:44)
[2019-11-19] MEDS: Sennosides 8.6 MG Tab PO SCH (10:45)
[2019-11-19] MEDS: Oseltamivir 30 MG Cap PO SCH ×2 (10:45→19:49)
[2019-11-19] MEDS: Dextrose 5% in Water 1,000 ML IV SCH (12:59)
--- NOTE | 2019-11-19 18:06 | PCM.PN ---
- General Info Date of Service: 11/19/19 Admission Dx/Problem (Free Text): History: She was admitted to with sudden sweating,, increased confusion, although she has significant dementia otherwise, and apparent respiratory distress. In the ER she was acidotic, in spite of tachypnea and probably partially compensated metabolic acidosis. Her lactic acid was quite elevated, WBC normal. Her BNP was quite elevated. She also tested positive for influenza type B. She had not been observed to choke during feeding but it was assumed that she might have aspiration pneumonia. Admitted and is getting Zosyn IV. She seems to feel better yesterday and today than on admission. Lactic acid decreased yesterday from 6.5 down to 3.0, other lab remains normal. Her CXR was read as normal. Exam: -Heart sounds regular, has a holosystolic murmur at the L chest consistent with mitral regurgitation -No respiratory distress now but she does have coarse rales and rhonchi throughout -Oximetry OK -She is mildly agitated and confused Impression: -Influenza type B -Acute respiratory distress at first, but now aspiration pneumonia seems unlikely -Murmur of mitral insufficiency Plan: -Continue Zosyn for a few days -Continue Tamiflu -Back to [facility] when she seems to be stabilizing. - Patient Data Vitals - Most Recent: Last Vital Signs Temp 36.1 C 11/19/19 17:28 Pulse 74 11/19/19 17:28 Resp 19 11/19/19 04:37 BP 116/56 L 11/19/19 17:28 Pulse Ox 95 11/19/19 17:28 Weight - Most Recent: 62.006 kg I&O - Last 24 Hours: Intake & Output 11/19/19 11/19/19 11/19/19 06:59 14:59 22:59 Intake Total 574 300 Balance 574 300 Lab Results Last 24 Hours: Laboratory Results - last 24 hr 11/19/19 11/19/19 11/19/19 Range/Units 06:52 06:52 06:52 WBC 6.9 (4.0-10.0) x10^3/uL RBC 4.01 (4.00-5.50) x10^6/uL Hgb 12.4 D (12.0-16.0) g/dL Hct 37.5 (33.0-47.0) % MCV 93.5 H (78.0-93.0) fL MCH 30.9 (26.0-32.0) pg MCHC 33.1 (32.0-36.0) g/dL RDW Coeff of Christopher 13.9 (10.0-15.0) % Plt Count 116 L (130-400) x10^3/uL Neut % (Auto) 80.5 H (50.0-80.0) % Lymph % (Auto) 12.4 L (25.0-50.0) % Long % (Auto) 6.7 (2.0-11.0) % Eos % (Auto) 0.3 (0.0-4.0) % Baso % (Auto) 0.1 L (0.2-1.2) % Sodium 146 H (136-145) mmol/L Potassium 3.2 L (3.5-5.1) mmol/L Chloride 112 H (98-107) mmol/L Carbon Dioxide 26 (21-32) mmol/L Anion Gap 11.2 (10-20) mmol/L BUN 25 H (7-18) mg/dL Creatinine 0.6 (0.55-1.02) mg/dL Est Cr Clr Drug Dosing 52.58 mL/min Estimated GFR (MDRD) > 60 Glucose 86 (74-106) mg/dL Calcium 8.2 L (8.5-10.1) mg/dL Magnesium 1.9 (1.8-2.4) mg/dL Michele Results Last 24 Hours: Microbiology 11/17/19 09:49 Aerobic Blood Culture - Preliminary Blood - Venous - Lab Draw NO GROWTH AFTER 2 DAYS Anaerobic Blood Culture - Final 11/17/19 09:40 Aerobic Blood Culture - Preliminary Blood - Venous NO GROWTH AFTER 2 DAYS Anaerobic Blood Culture - Preliminary NO GROWTH AFTER 2 DAYS Med Orders - Current: Current Medications Acetaminophen (Tylenol Extra Strength) 1,000 mg PO DAILY [facility] Last Admin: 11/19/19 10:43 Dose: 1,000 mg Albuterol/Ipratropium (Duoneb 3.0-0.5 Mg/3 Ml) 3 ml NEB Q4H PRN PRN Reason: Shortness Of Breath/wheezing Last Admin: 11/17/19 20:14 Dose: 3 ml Bisacodyl (Dulcolax) 10 mg RECTAL Q96H PRN PRN Reason: Constipation Bisacodyl (Dulcolax) 5 mg PO Q72H [facility] Last Admin: 11/17/19 16:26 Dose: Not Given Clobetasol Propionate (Clobetasol 0.05%) 0 gm TOP ASDIRECTED PRN PRN Reason: Itching Donepezil HCl (Aricept) 10 mg PO DAILY [facility] Last Admin: 11/19/19 10:43 Dose: 10 mg Hydrocortisone (Hydrocortisone 1% Crm) 0 gm TOP BID PRN PRN Reason: Itching Piperacillin Sod/Tazobactam (Sod 3.375 gm/ Sodium Chloride) 100 mls @ 25 mls/ hr IV Q8H [facility] Last Admin: 11/19/19 14:01 Dose: 25 mls/hr Dextrose/Water (Dextrose 5% In Water) 1,000 mls @ 75 mls/hr IV ASDIRECTED [facility] Last Admin: 11/19/19 12:59 Dose: 75 mls/hr Lamotrigine (Lamotrigine) 50 mg PO DAILY [facility] Last Admin: 11/19/19 10:44 Dose: 50 mg Levothyroxine Sodium (Levothyroxine) 75 mcg PO DAILY [facility] Last Admin: 11/19/19 10:44 Dose: 75 mcg Loratadine (Claritin) 10 mg PO DAILY [facility] Last Admin: 11/19/19 10:44 Dose: 10 mg Melatonin (Melatonin) 3 mg PO BEDTIME [facility] Last Admin: 11/18/19 19:43 Dose: 3 mg Omeprazole (Omeprazole) 20 mg PO ACBREAKFAST [facility] Last Admin: 11/19/19 06:43 Dose: 20 mg Ondansetron HCl (Zofran) 4 mg IVPUSH Q6H PRN PRN Reason: Nausea Last Admin: 11/17/19 10:31 Dose: 4 mg Ondansetron HCl (Zofran Odt) 4 mg PO Q8HR PRN PRN Reason: Nausea Last Admin: 11/18/19 19:44 Dose: 4 mg Oseltamivir Phosphate (Tamiflu) 30 mg PO BID [facility] Last Admin: 11/19/19 10:45 Dose: 30 mg Senna (Senna) 17.2 mg PO DAILY [facility] Last Admin: 11/19/19 10:45 Dose: Not Given Sodium Chloride (Saline Flush) 10 ml FLUSH ASDIRECTED PRN PRN Reason: Keep Vein Open Tramadol HCl (Ultram) 25 mg PO DAILY [facility] Last Admin: 11/19/19 10:41 Dose: 25 mg Triamcinolone Acetonide (Triamcinolone Acetonide 0.1% Crm) 0 gm TOP ONCALL PRN PRN Reason: Itching Discontinued Medications Clindamycin Phosphate 600 mg/ (Premix) 50 mls @ 150 mls/hr IV Q6H [facility] Last Admin: 11/17/19 09:50 Dose: 150 mls/hr Sodium Chloride (Normal Saline) 1,000 mls @ 100 mls/hr IV CONTINUOUS ONE Stop: 11/17/19 19:35 Last Admin: 11/17/19 09:49 Dose: 100 mls/hr Piperacillin Sod/Tazobactam (Sod 4.5 gm/ Sodium Chloride) 100 mls @ 200 mls/hr IV ONETIME ONE Stop: 11/17/19 12:59 Last Admin: 11/17/19 13:38 Dose: Not Given Sodium Chloride (Normal Saline) 1,000 mls @ 75 mls/hr IV ASDIRECTED [facility] Last Admin: 11/18/19 03:00 Dose: 75 mls/hr Piperacillin Sod/Tazobactam (Sod 4.5 gm/ Sodium Chloride) 100 mls @ 200 mls/hr IV ONETIME ONE Stop: 11/17/19 13:59 Last Admin: 11/17/19 13:37 Dose: 200 mls/hr Potassium Chloride 20 meq/ (Premix) 50 mls @ 25 mls/hr IV ONETIME ONE Stop: 11/18/19 13:03 Last Admin: 11/18/19 11:26 Dose: 25 mls/hr Lactulose (Chronulac) 10 gm PO DAILY [facility] Last Admin: 11/18/19 11:14 Dose: Not Given Oseltamivir Phosphate (Tamiflu) 75 mg PO BID [facility] Last Admin: 11/17/19 21:43 Dose: Not Given Oseltamivir Phosphate (Tamiflu) 30 mg PO ONETIME ONE Stop: 11/17/19 21:01 Last Admin: 11/17/19 21:42 Dose: 30 mg Sodium Bicarbonate (Sodium Bicarbonate 8.4%) 50 meq IVPUSH ONETIME ONE Stop: 11/17/19 12:15 Last Admin: 11/17/19 13:42 Dose: 50 meq Sepsis Event Note - Evaluation Sepsis Screening Result: No Definite Risk - Focused Exam Vital Signs: Vital Signs Temp Pulse BP Pulse Ox Pulse Ox 11/19/19 17:28 36.1 C 74 116/56 L 95 11/19/19 15:33 36.6 C 75 111/49 L 96 11/19/19 08:00 97 Date Exam was Performed: 11/19/19 Time Exam was Performed: 18:04 - Problem List Review Problem List Initiated/Reviewed/Updated: Yes
[2019-11-19] MEDS ORDERED: Hypromellose 0.3% Ophth Soln 15 ML Bottle EYEBOTH PRN (19:02)
--- NOTE | 2019-11-19 19:26 | CR ---
[id number] RAD/RAD Chest PA or AP 1V EXAM: RAD Chest PA or AP 1V INDICATION: INFLUENZA. COMPARISON: November 17, 2019. DISCUSSION: Cardiomediastinal silhouette is stable in size and contour. Moderate to large hiatal hernia. Right basilar pulmonary infiltrate. Pulmonary hyperinflation. Vascular crowding. No pneumothorax. Small left pleural effusion. IMPRESSION: Right basilar pulmonary infiltrate. Sanket Martin DO 11/19/19 1925 Thank you for allowing us to participate in the care of your patient.
[2019-11-19] MEDS: Melatonin 3 MG Tab PO SCH (19:48)
[2019-11-19] MEDS ORDERED: Potassium Chloride 10 MEQ Tab.ER PO ONE (19:54)
[2019-11-20] MEDS: Piperacillin/Tazobactam 3.375 GM in Sodium Chloride 0.9% 100 ML IV SCH ×3 (04:06→19:57)
[2019-11-20] MEDS: Omeprazole 20 MG Cap.CR PO SCH (06:05)
[2019-11-20 07:03] LABS: CHLORIDE,CL 110 mmol/L (98-107); SODIUM,NA 144 mmol/L (136-145)
[2019-11-20 07:05] LABS: ANION GAP 11.1 mmol/L (10-20)
[2019-11-20] MEDS: Acetaminophen 500 MG Tab PO SCH (07:58)
[2019-11-20] MEDS: Levothyroxine 75 MCG Tab PO SCH (07:58)
[2019-11-20] MEDS: Loratadine 10 MG Tab PO SCH (07:58)
[2019-11-20] MEDS: Donepezil 10 MG Tab PO SCH (07:58)
[2019-11-20] MEDS: traMADol 50 MG Tab PO SCH (07:59)
[2019-11-20] MEDS: Sennosides 8.6 MG Tab PO SCH (07:59)
[2019-11-20] MEDS: lamoTRIgine 100 MG Tab PO SCH (07:59)
[2019-11-20] MEDS: Oseltamivir 30 MG Cap PO SCH ×2 (08:00→19:57)
[2019-11-20] MEDS ORDERED: Albuterol/Ipratropium 3.0-0.5 MG/3 ML Neb Soln NEB ONE (08:39)
[2019-11-20] MEDS: Potassium Chloride 10 MEQ Tab.ER PO SCH ×3 (09:49→17:46)
--- NOTE | 2019-11-20 11:26 | PN ---
Progress Note for MADONNA SANCHEZ Date: 11/20/2019 Room #: VM.216 SUBJECTIVE: This is hospital day #4 on an 89-year-old admitted with aspiration and vomiting due to influenza B. She is weaned off oxygen this morning and she is still 92% on room air. She was having quite a coughing spell. It was not just related to eating. Therefore, she was given a nebulizer treatment, she had not had one in a few days. She is denying any pain. She is asking for her teeth so she can eat a Wol[place] food she has. Otherwise, she has been eating okay soft foods at least 25%, but 50% of her dinner last night. She has been having bowel movements. No reports of diarrhea. She denies that she is short of breath. She has been afebrile. X-ray repeated yesterday did show the right lower lobe infiltrate. Potassium has been low. It has been replaced orally. She is off IV fluids. Blood cultures have been negative. OBJECTIVE: Vital Signs: Her temperature 97.8, pulse 70, blood pressure 113/51, respiratory rate 18, and O2 of 97% on 1.5 L. General: She is in no acute distress. Heart: Regular rate and rhythm with murmur. Lungs: Lung sounds are decreased in the right base with rhonchi still. Left base decreased also, but no crackles. Abdomen: Nondistended, nontender. Extremities: Warm and dry, no edema. Mental Status: She is alert, but she is unable to answer the orientation questions. LABORATORY DATA: Lab work today does show white count normal 5.4, hemoglobin 11.9, platelets 112. Sodium 144, potassium 3.1, chloride 110, bicarb 26, BUN 19, creatinine 0.6, lactic normalized at 0.7, calcium 8, magnesium normal yesterday at 1.9. ASSESSMENT AND PLAN: 1. Influenza B. She is on Tamiflu, now day #4. 2. Aspiration pneumonia. She is on IV Zosyn, now day #4. Due to concern about swallowing, we are going to just leave it IV for today. 3. Hypokalemia. We will continue to replace orally as able. I will also give her an IV dose today. 4. Dementia. 5. Acute hypoxic respiratory failure due to aspiration and influenza. 6. Impulse control disorder and anxiety. 7. Hypothyroidism, on home medications. 8. Deep vein thrombosis prophylaxis. We will start her on some SCDs. 9. Mild thrombocytopenia. We will continue to monitor. 10.Gastroesophageal reflux disease. She is on some Prilosec. PLAN: At this point, we will continue acute cares with IV antibiotics. We will get her assessed by Speech Therapy. She is on a mechanical soft diet. We will use the neb treatments to help with cough and breathing. She has already been weaned off oxygen. We will replace potassium, and SCDs for DVT prophylaxis. Anticipate she will be discharged back to [facility] tomorrow. Plan of care was also discussed with her daughter, Giana. MKA: 11/20/2019 10:40:10 MODL: 11/20/2019 11:16:15 /[id number]
[2019-11-20] MEDS ORDERED: Potassium Chloride Riders 20 MEQ in Premix Bag 1 BAG IV ONE (12:31)
[2019-11-20] MEDS: Bisacodyl 5 MG Tab PO SCH (12:44)
[2019-11-20] MEDS: Melatonin 3 MG Tab PO SCH (19:57)
[2019-11-20] MEDS: Albuterol/Ipratropium 3.0-0.5 MG/3 ML Neb Soln NEB PRN (19:57)
[2019-11-21] MEDS: Albuterol/Ipratropium 3.0-0.5 MG/3 ML Neb Soln NEB PRN (03:31)
[2019-11-21] MEDS: Piperacillin/Tazobactam 3.375 GM in Sodium Chloride 0.9% 100 ML IV SCH ×2 (03:41→15:11)
[2019-11-21 04:36] VITALS: BP 107/65; PULSE 77
[2019-11-21] MEDS: Omeprazole 20 MG Cap.CR PO SCH (06:39)
[2019-11-21 07:07] LABS: CHLORIDE,CL 110 mmol/L (98-107); SODIUM,NA 144 mmol/L (136-145)
[2019-11-21 07:08] LABS: ANION GAP 12.5 mmol/L (10-20)
[2019-11-21] MEDS: traMADol 50 MG Tab PO SCH (09:08)
[2019-11-21] MEDS: lamoTRIgine 100 MG Tab PO SCH (09:09)
[2019-11-21] MEDS: Oseltamivir 30 MG Cap PO SCH (09:10)
[2019-11-21] MEDS: Potassium Chloride 10 MEQ Tab.ER PO SCH ×2 (09:10→15:11)
[2019-11-21] MEDS: Donepezil 10 MG Tab PO SCH (09:10)
[2019-11-21] MEDS: Loratadine 10 MG Tab PO SCH (09:10)
[2019-11-21] MEDS: Levothyroxine 75 MCG Tab PO SCH (09:10)
[2019-11-21] MEDS: Acetaminophen 500 MG Tab PO SCH (09:10)
[2019-11-21] MEDS: Sennosides 8.6 MG Tab PO SCH (09:11)
--- NOTE | 2019-11-21 23:40 | DISCH ---
PRIMARY DISCHARGE DIAGNOSES: 1. Acute hypoxic respiratory failure due to aspiration. 2. Aspiration pneumonia. 3. Influenza B. 4. Severe hypokalemia, requiring IV and oral replacement. 5. Underlying dementia. 6. Impulse control disorder and anxiety. 7. Hypothyroidism. 8. Mild thrombocytopenia, probably due to influenza, improving on discharge. 9. Gastroesophageal reflux disease. 10.Restless legs syndrome. 11.Osteoarthritis. REASON FOR ADMISSION: On the date of admission, this 89-year-old female, who was previously feeling well had an episode of vomiting. She was brought over to the emergency room due to having increased confusion as well as sweating. She had very wet lung sounds and was very tachypneic. HOSPITAL COURSE: She was started on IV Zosyn as well as Tamiflu due to positive influenza. Chest x-ray did show her to have an infiltrate in the right basilar lung when it was repeated on the . She was able to be weaned from oxygen and has been on room air now for 24 hours. She was quite acidotic on admission with a pH of 7.25. She actually received some bicarb and this improved. Her lactic went up to 7.1 at one point, but then normalized. Her white count was never elevated. She was extremely dehydrated and she was given IV fluids. Urine test was just showing some blood in the urine, no wbc's. Otherwise, she was having some diarrhea as well, so her lactulose was held. She was eating only about 25% to 50% of her meals. Therefore, she was getting potassium replacement both orally and IV. On discharge, her potassium was normal at 3.5. Hemoglobin had dropped down to 11.7. This is likely due to some hemodilution from fluids. There were no acute signs of bleeding. Her creatinine had returned from 1.2 down to normal 0.6. Her cultures for blood were negative. MRSA screen negative. PHYSICAL EXAMINATION: Discharge vitals: Include a temperature 97.7, pulse 77, blood pressure 107/65, respiratory rate 20, and O2 of 95% on room air. General: She was in no acute distress. Heart: Regular rate and rhythm with murmur. Lungs: Sounds were clear to auscultation today without crackles or wheezes. Abdomen: Nondistended, nontender. Extremities: Warm and dry. No edema. Mental status: She is alert. She is not able to answer orientation questions, but she is able to speak clearly and answer questions appropriately with yes or no. DISCHARGE PLANS AND INSTRUCTIONS: She is going back to [facility]. We will have a repeat BMP in 1 week. I will do a UA then as well due to the blood in her urine. She will complete 1 more day of Tamiflu and Augmentin as she did receive IV Zosyn here. I will see her on group home rounds on the . She will be on potassium 20 mEq twice daily until her followup lab work. She will have a video swallow at [facility] in 1 to 2 weeks, and be seen by PT, OT, and Speech back at the group home. Diet: We will resume mechanical soft. We will also have nectar thickened liquids. We will schedule a nebulizer in the morning and continue it p.r.n. Greater than 30 minutes spent on it. MKA: 11/21/2019 08:35:44 MODL: 11/21/2019 23:31:56 /[id number]
== END 2019-11-21 09:30 | DRG 177 ==
LOC: VM.ED 09:25 → VM.MS 11:42
PROVIDERS: ADMIT Nurse Practitioner Family; ATTEND Internal Medicine
DX: A41.9 Sepsis, unspecified organism (principal); J69.0 Pneumonitis due to inhalation of food and vomit; R74.0 Nonspecific elevation of levels of transaminase and lactic acid dehydrogenase [LDH]; J96.01 Acute respiratory failure with hypoxia; K59.09 Other constipation; F03.91 Unspecified dementia, unspecified severity, with behavioral disturbance; M19.90 Unspecified osteoarthritis, unspecified site; M81.0 Age-related osteoporosis without current pathological fracture; J10.1 Influenza due to other identified influenza virus with other respiratory manifestations; F03.90 Unspecified dementia, unspecified severity, without behavioral disturbance, psychotic disturbance, mood disturbance, and anxiety; F32.9 Major depressive disorder, single episode, unspecified; F41.9 Anxiety disorder, unspecified; E86.0 Dehydration; F63.9 Impulse disorder, unspecified; Z90.710 Acquired absence of both cervix and uterus; E03.9 Hypothyroidism, unspecified; Z91.048 Other nonmedicinal substance allergy status; E78.00 Pure hypercholesterolemia, unspecified; G25.81 Restless legs syndrome; E87.6 Hypokalemia; K21.9 Gastro-esophageal reflux disease without esophagitis; D69.6 Thrombocytopenia, unspecified; F41.1 Generalized anxiety disorder; Z85.3 Personal history of malignant neoplasm of breast; Z79.890 Hormone replacement therapy; Z79.899 Other long term (current) drug therapy; Z88.2 Allergy status to sulfonamides; Z91.09 Other allergy status, other than to drugs and biological substances
CPT/HCPCS: 36415; 36600; 71045; 80048; 80053; 81001; 82803; 83605; 83735; 83880; 84484; 85025; 86140; 87040; 87804; 87804-59; 92526-GN; 92610-GN; 93005; 94640; 94760; 96361; 96365; 96375; 99284-GF; 99285-25; A9270-GY; J2405; J2543; J3480; J3490; J7030; J7050; J7060; J7620-GY